=== PATIENT | female | born 1960 | race Caucasian/White ===

== ENCOUNTER → 2017-11-19 09:33 | Outpatient (CLI) | payer BC | END | disposition home or self-care (01) | LOC: D.RAD 09:00 | DX: R06.02 Shortness of breath (principal) ==

== ENCOUNTER 2018-07-04 10:20 | Day surgery (SDC) | payer BC ==
[~2018-07-04] VITALS: Ht 170.2 cm; Wt 104.5 kg
--- NOTE | ~2018-07-04 | OP ---
PATIENT NAME: JOHNATHON SAM MEDICAL RECORD: [id number] :64 LOCATION:D.OPS ADMISSION DATE: SURGEON: TAMY COTA MD DATE OF OPERATION: 07/04/2018 PROCEDURE: Colonoscopy with polypectomy. PREFORM PLATE MAKER: Tamy Cota MD SCOPE: Olympus video colonoscope. MEDICATIONS: Per TIVA anesthesia. The patient received 400 mg of propofol IV push, O2 4 liters. The indication for propofol is obstructive sleep apnea. INDICATION FOR THE PROCEDURE: Surveillance procedure. The patient has a previous history of polyps removed from other procedures in the past. FINDINGS AND DESCRIPTION OF PROCEDURE: Informed consent was given. The patient was made comfortable with the above medications. After reaching an adequate level of sedation by slow IV push, she was placed on her left side. The rectal exam revealed good sphincter tone. No fissures or fistulas were appreciated. No external skin tags were seen. The colonoscope was advanced to the cecum where the ileocecal valve and appendiceal orifice were identified. This was a technically difficult procedure secondary to a long redundant colon, spasm associated with irritable bowel syndrome, and pelvic adhesions. On withdrawal of the scope, the patient was noted to have very mild left-sided diverticulosis without diverticulitis. In the distal sigmoid area, a 0.5 cm polyp was seen and removed with hot biopsy forceps technique. On retroflexion and final withdrawal of the scope, internal hemorrhoids were noted. IMPRESSION: 1. Distal sigmoid polyp, 0.5 cm in size, removed with hot biopsy forceps technique. 2. Internal hemorrhoids, nonhemorrhagic. 3. Pyuf-nj-zhbffxmu left-sided diverticulosis without diverticulitis. 4. Pelvic adhesions. 5. Spasm associated with irritable bowel syndrome. PLAN: 1. No aspirin or anti-inflammatory drugs times 14 days. 2. High fiber diet. 3. Probiotics. 4. Return to clinic on a p.r.n. basis. 5. Next procedure in 5 years. TRANSINT:[id number] Voice Confirmation ID: [id number] DOCUMENT ID: [id number] OPERATIVE REPORT [id number] FLACOJOHNATHON Ascencion TAMY COTA MD at 1215 CC: ELIS MIRANDA MD [id number] DICTATION DATE: 07/04/18 1433 PRODUCTION GRAPHIC DESIGNER: 07/04/18 1443 DEP SDC 07/04/18 [facility] [address] [place] [address]
[2018-07-04] MEDS ORDERED: EFFEXOR XR75 MG PO (10:48)
[2018-07-04] MEDS ORDERED: NEXIUM40 MG PO (10:49)
[2018-07-04] MEDS ORDERED: FLUTICASONE PRO16 GM NASAL (10:57)
[2018-07-04 11:00] VITALS: BP 142/75; Ht 170.2 cm; Wt 104.5 kg
[2018-07-04 11:23] LABS: HEMATOCRIT 36.9 % (36.0-48.0); HEMOGLOBIN 12.2 g/dL (12-16); MCH 28.3 pg (26.0-34.0); MCHC 33.1 g/dL (31.0-37.0); MCV 85.6 fL (80.0-100.0); MEAN PLATELET VOLUME 9.7 fL (7.4-10.4); PLATELET COUNT 247 10x3/uL (130-400); RBC 4.31 10x6/uL (4.00-5.40); RDW 13.3 % (11.5-14.5); WBC 4.1 10x3/uL (4.8-10.8)
[2018-07-04 11:26] LABS: CALC OSMOLALITY 280 mosm/kg (275-300); CALCIUM 8.5 mg/dL (8.5-10.1); CARBON DIOXIDE 26.7 mmol/L (21.0-32.0); CHLORIDE - SERUM 105 mmol/L (98-107); CREATININE - SERUM 0.7 mg/dL (0.6-1.3); GLUCOSE 105 mg/dL (74-106); POTASSIUM - SERUM 3.9 mmol/L (3.5-5.1); SODIUM 142 mmol/L (136-145); UREA NITROGEN 6 mg/dL (7-18); eGFR NON AFRICAN AMERICAN > 90 mL/min (90-120)
[2018-07-04 12:53] LABS: BASOPHILS 1 % (0-2); EOSINOPHILS 1 % (0-7); LYMPHOCYTES 37 % (15-50); MONOCYTES 5 % (2-11); NEUTROPHILS 56 % (40-80); PLATELET ESTIMATE NORMAL
== END 2018-07-04 15:45 | disposition home or self-care (01) ==
LOC: D.OPS 10:20
PROVIDERS: Anesthesiology
DX: K63.5 Polyp of colon (principal); K64.8 Other hemorrhoids; N73.6 Female pelvic peritoneal adhesions (postinfective); K57.90 Diverticulosis of intestine, part unspecified, without perforation or abscess without bleeding; K58.9 Irritable bowel syndrome, unspecified; Z01.812 Encounter for preprocedural laboratory examination

== ENCOUNTER → 2018-12-11 18:09 | Outpatient (CLI) | payer BC ==
[2018-07-04 11:00] VITALS: BMI 36.1
[~2018-12-11 18:09] MED LIST: EFFEXOR XR75 MG PO; FLUTICASONE PRO16 GM NASAL; NEXIUM40 MG PO
== END | disposition home or self-care (01) ==
LOC: D.LABREF 18:09
DX: D72.829 Elevated white blood cell count, unspecified (principal)

== ENCOUNTER 2019-01-09 08:37 | Day surgery (SDC) | payer BC ==
[2019-01-08 09:04] LABS: HEMATOCRIT 40.2 % (36.0-48.0); HEMOGLOBIN 13.4 g/dL (12-16); MCH 29.1 pg (26.0-34.0); MCHC 33.3 g/dL (31.0-37.0); MCV 87.2 fL (80.0-100.0); MEAN PLATELET VOLUME 9.4 fL (7.4-10.4); RBC 4.61 10x6/uL (4.00-5.40); RDW 13.2 % (11.5-14.5); WBC 6.4 10x3/uL (4.8-10.8)
[~2019-01-09] VITALS: Ht 170.2 cm; Wt 107.0 kg
[2019-01-09 08:33] VITALS: BP 129/72; Ht 170.2 cm; Wt 107.0 kg
[~2019-01-09 08:37] MED LIST changes: +BENADRYL25 MG PO; +PEPCID AC20 MG PO
--- NOTE | 2019-01-09 11:45 | NUR ---
REC'D FROM SURGERY. FAMILY AT BEDSIDE. DR RONDON IN WITH PATIENT AND . WANTING TO URINATE BUT EXPLAINED WON'T BE ABLE TO VOID UNTIL 1205.
--- NOTE | 2019-01-09 12:05 | NUR ---
AMBULATED TO BATHROOM. VOIDED HOWEVER RELATES IT HURTS AND TURK. WANTS TO SIT ON COMMODE FOR ALITTLE TIME.
--- NOTE | 2019-01-09 12:30 | NUR ---
VIANEY SMITH BROUGHT TO PT. AT BEDSIDE.
--- NOTE | 2019-01-09 12:40 | OP ---
PATIENT NAME: JOHNATHON SAM MEDICAL RECORD: [id number] :64 LOCATION:D.OPS ADMISSION DATE: SURGEON: YONI RONDON MD DATE OF OPERATION: 01/09/2019 SURGEON: Yoni Rondon MD ANESTHESIA: TIVA by Duncan Dooley CRNA. DIAGNOSIS: Interstitial cystitis. PROCEDURE: Cystoscopy, hydrodistention of the bladder, intravesical Rimso instillation. FINDINGS: Single ureteral orifices bilaterally with no bladder tumors. Diffuse bladder inflammation. ESTIMATED BLOOD LOSS: None. CLINICAL HISTORY: This is a 58-year-old female with recurrent urinary tract infection symptoms. Urine cultures have grown mixed organisms. She comes today for cystoscopy and if bladder inflammation is seen, we will treat her with intravesical Rimso as well as hydrodistention. She is not allergic to any medications. 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 DESCRIPTION OF PROCEDURE: The patient was given IV sedation. She was then placed in the dorsal lithotomy position and prepped and draped. We used a 17-Greek cystoscope with 30-degree lens. Bladder inflammation was noted. I then filled her bladder to about 500 mL. She showed a lot of muscle contractions with her legs indicating that she was feeling some discomfort even under sedation. The distention was held for about 1 minute and then the bladder was emptied. A 16-Greek red rubber catheter was then inserted into the urethra and 50 mL of intravesical Rimso solution was instilled into the bladder through the lumen of the catheter. The catheter was removed leaving the solution in the bladder. She will hold the solution in for 15 minutes and then void it out. I will see her in 2 weeks' time to give her another treatment of Rimso if she is still symptomatic. TRANSINT:[id number] Voice Confirmation ID: [id number] DOCUMENT ID: [id number] YONI RONDON MD at 1240 CC: [id number] DICTATION DATE: 01/09/19 1144 MICROWAVE SUPERVISOR: 01/09/19 1225 [facility] [address] [id number]
--- NOTE | 2019-01-09 12:50 | NUR ---
TOLERATED DIET. IV DC'D WITH CATHETER INTACT.
--- NOTE | 2019-01-09 12:55 | NUR ---
WRITTEN AND VERBAL DC INST. GIVEN TO PT. VERBALIZED UNDERSTANDING.
--- NOTE | 2019-01-09 13:05 | NUR ---
DC'D HOME WITH FAMILY VIA PRIVATE VEHICLE. TAKEN TO VEHICLE VIA WC. STABLE AT TIME OF DC.
== END 2019-01-09 13:05 | disposition home or self-care (01) ==
LOC: D.OPS 08:37 → D.PAN 14:30 → D.OPS 14:30
PROVIDERS: Anesthesiology; ATTEND Urology
DX: N30.10 Interstitial cystitis (chronic) without hematuria (principal); Z01.812 Encounter for preprocedural laboratory examination

== ENCOUNTER → 2019-01-28 17:42 | Outpatient (CLI) | payer BC ==
[2019-01-09 08:33] VITALS: BMI 37.0
== END | disposition home or self-care (01) ==
LOC: D.LABREF 17:42
PROVIDERS: ATTEND Urology
DX: D72.829 Elevated white blood cell count, unspecified (principal)

== ENCOUNTER → 2019-02-14 18:02 | Outpatient (CLI) | payer BC | END | disposition home or self-care (01) | LOC: D.LABREF 18:02 | DX: N30.10 Interstitial cystitis (chronic) without hematuria (principal) ==